=== PATIENT | male | born 1960 | race Two or more races ===

== ENCOUNTER 2022-07-08 16:02 | Emergency (ER) | payer OTHER ==
[~2022-07-08] VITALS: Ht 162.6 cm; Wt 145.1 kg
[2022-07-08] MEDS ORDERED: METFORMIN HCL500 M3 (16:22)
== END 2022-07-08 23:32 | disposition home or self-care (01) ==
LOC: ER 16:02 → EDSEX 16:02 → ER 16:50
DX: R53.1 Weakness (principal); R42 Dizziness and giddiness; R19.7 Diarrhea, unspecified; E11.9 Type 2 diabetes mellitus without complications; I10 Essential (primary) hypertension; E03.9 Hypothyroidism, unspecified; M25.461 Effusion, right knee; Z96.661 Presence of right artificial ankle joint